=== PATIENT | male | born 1975 | race Caucasian/White ===

== ENCOUNTER 2018-04-15 23:01 | Emergency (ER) | payer OTHER ==
[~2018-04-15] VITALS: Ht 180.3 cm; Wt 145.4 kg
[2018-04-15 23:04] VITALS: BP 142/107
[2018-04-15] MEDS ORDERED: TETanus/Pertussis (Acell)/Diphther VAC/PF (Tdap-Adult) 0.5ml syringe IM ONE (23:25)
[2018-04-16] MEDS ORDERED: CEPH-572 PO (00:45)
[2018-04-16] MEDS ORDERED: HYDR-3965 PO (01:01)
== END 2018-04-16 01:19 | disposition home or self-care (01) ==
LOC: ER 23:01
DX: S91.311A Laceration without foreign body, right foot, initial encounter (principal); I10 Essential (primary) hypertension; W26.8XXA Contact with other sharp object(s), not elsewhere classified, initial encounter; Y93.01 Activity, walking, marching and hiking; Y92.090 Kitchen in other non-institutional residence as the place of occurrence of the external cause; Y99.8 Other external cause status
CPT/HCPCS: 12004; 73630; 90471; 90715; 99283

== ENCOUNTER 2018-08-25 19:31 | Emergency (ER) | payer SELFPAY ==
[~2018-08-25] VITALS: Ht 180.3 cm; Wt 122.3 kg
[2018-08-25 19:43] VITALS: BP 149/89
[2018-08-25] MEDS ORDERED: CEPH-572 PO (21:17)
[2018-08-25] MEDS ORDERED: cephalexin 500mg capsule PO ONE (21:20)
== END 2018-08-25 21:39 | disposition home or self-care (01) ==
LOC: ER 19:31
DX: S91.311A Laceration without foreign body, right foot, initial encounter (principal); I10 Essential (primary) hypertension; Z79.899 Other long term (current) drug therapy; W55.32XA Struck by other hoof stock, initial encounter; Y93.89 Activity, other specified; Y92.89 Other specified places as the place of occurrence of the external cause; Y99.8 Other external cause status
CPT/HCPCS: 12001; 12002; 73630; 99283

== ENCOUNTER 2020-01-08 07:36 | Inpatient (IN) | payer SELFPAY ==
[~2020-01-08] VITALS: Ht 180.3 cm; Wt 153.2 kg
[2020-01-08] VITALS (10 sets, daily range): BP systolic 137–166; BP diastolic 81–103
[2020-01-08 08:17] LABS: BASOPHILS # (AUTO) 0.1 X10'3 (0-0.2); BASOPHILS % (AUTO) 0.7 % (0-1); EOSINOPHILS # (AUTO) 0.3 X10'3 (0-0.9); EOSINOPHILS % (AUTO) 1.9 % (0-6); HEMATOCRIT 42.7 % (42.0-52.0); HEMOGLOBIN 14.3 g/dl (14.0-17.9); LYMPHOCYTES # (AUTO) 2.2 X10'3 (1.1-4.8); LYMPHOCYTES % (AUTO) 12.5 % (21-51); MEAN CORPUSCULAR HEMOGLOBIN 30.6 PG (27.0-31.0); MEAN CORPUSCULAR HGB CONC 33.5 g/dL (33.0-36.5); MEAN CORPUSCULAR VOLUME 91.4 FL (78-98); MEAN PLATELET VOLUME 8.5 FL (7.4-10.4); MONOCYTES # (AUTO) 1.2 X10'3 (0-0.9); MONOCYTES % (AUTO) 6.7 % (2-12); NEUTROPHILS # (AUTO) 13.6 X10'3 (1.8-7.7); NEUTROPHILS % (AUTO) 78.2 % (42-75); PLATELET COUNT 416 X10'3 (140-440); RED BLOOD COUNT 4.67 X10'6 (4.70-6.10); RED CELL DISTRIBUTION WIDTH 14.3 % (11.5-14.5); WHITE BLOOD COUNT 17.4 X10'3 (4.5-11.0)
[2020-01-08 08:19] LABS: CLARITY,URINE SLIGHTLY CLOUDY (Clear); GLUCOSE, URINE NEGATIVE (Neg); KETONES,URINE NEGATIVE (Neg); LEUKOCYTE ESTERASE ,URINE NEGATIVE (Neg); NITRITES, URINE NEGATIVE (Neg); OCCULT BLOOD,URINE LARGE (Neg); PH,URINE 5.5 (4.8-8.0); PROTEIN,URINE TRACE mg/dl (Neg)
[2020-01-08 08:21] LABS: COLOR,URINE DARK YELLOW (Yellow); UA COLLECTION TYPE VOIDED
[2020-01-08 08:31] LABS: ALANINE AMINOTRANSFERASE 69 U/L (12-78); ALBUMIN 3.3 G/DL (3.4-5.0); ALBUMIN/GLOBULIN RATIO 0.6 (1.1-1.5); ALKALINE PHOSPHATASE 79 IU/L (46-116); ANION GAP 8 (8-16); ASPARTATE AMINO TRANSFERASE 27 U/L (10-37); BILIRUBIN,TOTAL 0.5 MG/DL (0.1-1.0); BLOOD UREA NITROGEN 11 MG/DL (7-18); BUN/CREATININE RATIO 9.2 (5.4-32.0); CALCIUM 9.2 MG/DL (8.5-10.1); CHLORIDE 103 MMOL/L (99-107); GLUCOSE 107 MG/DL (70-104); LIPASE 89 U/L (73-393); POTASSIUM 3.7 MMOL/L (3.5-5.1); SODIUM 137 MMOL/L (135-145); TOTAL CARBON DIOXIDE 26.5 MMOL/L (24-32); TOTAL PROTEIN 8.5 G/DL (6.4-8.2); eGFR 66 ML/MIN
[2020-01-08 08:34] LABS: MUCUS STRANDS MANY /LPF (Neg); SQUAMOUS EPITHELIAL CELL,UR FEW /LPF (FEW)
[2020-01-08 08:35] LABS: CAL OXALATE CRYSTALS 2+ /HPF (NEGATIVE)
[2020-01-08] MEDS ORDERED: morphine 4 MG/ML inj SYRINge IV ONE (08:35)
[2020-01-08] MEDS ORDERED: pantoprazole 40 MG vial IV ONE (08:35)
[2020-01-08] MEDS ORDERED: normal saline 1000ML IV soln IVB ONE ×2 (08:35)
[2020-01-08 08:42] LABS: BACTERIA,URINE 1+ /HPF (Neg)
[2020-01-08 08:43] LABS: WBC,URINE 0-4 /HPF (0-4)
[2020-01-08] MEDS ORDERED: iohexol 300mg/ml 100ml inj. ONE (08:49)
[2020-01-08] MEDS ORDERED: piperacillin/tazo 3.375gm/50ml 50 ML IV ONE (10:25)
[2020-01-08] MEDS ORDERED: ESCI5TAB PO (10:45)
[2020-01-08] MEDS ORDERED: TRAZ-256 PO (10:45)
[2020-01-08] MEDS ORDERED: LOSA50TA64 PO (10:45)
[2020-01-08] MEDS ORDERED: magnesium 2GM in 50ml NS 50 ML IV PRN (11:40)
[2020-01-08] MEDS ORDERED: magnesium 4gm in 100ml NS 100 ML IV PRN (11:40)
[2020-01-08] MEDS ORDERED: HYDROcodone/acetaminophen 10/325mg tab PO PRN (11:40)
[2020-01-08] MEDS ORDERED: acetaminophen 325mg tablet PO PRN ×2 (11:40)
[2020-01-08] MEDS ORDERED: mag hydrox/Alum hydrox/simeth 30ml oral suspension PO PRN (11:40)
[2020-01-08] MEDS ORDERED: potassium Cl 20 mEq SR tablet PO PRN ×2 (11:40)
[2020-01-08] MEDS ORDERED: magnesium Cl slow-release 64mg tablet PO PRN (11:40)
[2020-01-08] MEDS ORDERED: ondansetron/PF 4mg/2ml inj IV PRN ×2 (11:40→18:05)
[2020-01-08] MEDS ORDERED: HYDROcodone/acetaminophen 5mg/325mg tablet PO PRN (11:40)
[2020-01-08] MEDS ORDERED: bisacodyl 10mg suppository rectal RC PRN (11:40)
[2020-01-08] MEDS ORDERED: HYDROmorphone inj. 0.5 MG/0.5 ML DISP.SYRIN IV PRN (11:40)
[2020-01-08] MEDS ORDERED: metoclopramide 5 mg/ml inj IV PRN (11:40)
[2020-01-08] MEDS ORDERED: magnesium hydroxide 30ml (MOM) UD suspension PO PRN (11:40)
[2020-01-08] MEDS ORDERED: potassium CL 10mEq/100ml bag 100 ML IV PRN ×2 (11:40)
[2020-01-08] MEDS: normal saline 1000ml 1,000 ML IV SCH ×2 (12:16→23:51)
--- NOTE | 2020-01-08 14:54 | NUR ---
Christian picked up from pharmacy and given to Sanjuana MARK.
--- NOTE | 2020-01-08 15:30 | NUR ---
pt going to OR first. Addendum: 01/08/20 at 1532 by RWILCOX report given to Ramsey in Recovery.
[2020-01-08 15:36] LABS: PARTIAL THROMBOPLASTIN TIME 32 SECONDS (22-32)
--- NOTE | 2020-01-08 15:40 | NUR ---
RECEIVED REPORT FROM DEEDEE PALACIOS. WAITING FOR PATIENT ARRIVAL TO ROOM 360A BUT WAS NOTIFIED THAT PATIENT WILL BE GOING TO OR FIRST.
[2020-01-08] MEDS: piperacillin/tazo 3.375gm/50ml 50 ML IV SCH ×2 (16:00→23:53)
[2020-01-08] MEDS ORDERED: BUPIVAcaine/PF 2.5 mg/ml (0.25%) 30ml vial ONE (16:04)
[2020-01-08] MEDS ORDERED: LIDOcaine 1% 30ml preserv. free vial ONE (16:04)
[2020-01-08] MEDS ORDERED: BUPIVACAINE liposomal/PF 13.3 MG/ML vial IM ONE (16:04)
[2020-01-08] MEDS ORDERED: BUPIVAcaine/PF 2.5mg/ml (0.25%) 10ml vial ONE (16:04)
[2020-01-08] MEDS ORDERED: midazolam 2 mg/2 ml injection ONE (16:27)
[2020-01-08] MEDS ORDERED: fentaNYL /PF 50mcg/ml 5ml ampule ONE ×2 (16:27→18:15)
[2020-01-08] MEDS ORDERED: rocuronium 10mg/ml inj IV ONE (16:29)
[2020-01-08] MEDS ORDERED: propofol inj 20 ML IV ONE ×2 (16:29→20:08)
[2020-01-08] MEDS ORDERED: LIDOcaine 2% (20mg/ml) 5ml vial ONE (16:30)
[2020-01-08] MEDS ORDERED: ceFOXitin 2GM-NS 50mL ADDVANT. 50 ML IV ONE (17:06)
[2020-01-08] MEDS ORDERED: ringers solution, lacted 1,000 ML IV SCH (18:01)
[2020-01-08] MEDS ORDERED: morphine 2 MG/ML inj. syringe IV PRN (18:05)
[2020-01-08] MEDS ORDERED: proCHLORperazine 10 MG/2 ml inj IV PRN (18:05)
[2020-01-08] MEDS ORDERED: morphine 4 MG/ML inj SYRINge IV PRN (18:05)
[2020-01-08] MEDS ORDERED: meperidine/PF 25mg/ml syringe IV PRN ×3 (18:05)
[2020-01-08] MEDS ORDERED: INDOCYANINE GREEN 25 MG/10 ML VIAL IV ONE (18:36)
[2020-01-08] MEDS: K and/or MAG REPLACEMENT MC SCH (20:00)
[2020-01-08] MEDS ORDERED: ceFOXitin 1000 MG inj ONE (20:08)
--- NOTE | 2020-01-08 20:44 | NUR ---
Received from OR via , accompanied by Anesthesiologist DR KELLEY and report given by Anesthesiolgist. PT WAKES TO VOICE, SKIN WARM AND PINK, MOVING EXT X 4, LS DIM, SCD'S ON, 4 BA'S ON THE ABD AND ONE 4X4 ISLAND DRESSING ALL CD, PIMENTEL TO GRAVITY WITH ANDRE URINE, KRISTIN DRAIN WITH SEROSANQ DRAINAGE, NO C/O PAIN, VSS, PIV RIGHT AC 20G LR 100ML/HR.
[2020-01-08] MEDS ORDERED: temazepam 15mg capsule PO PRN (21:00)
[2020-01-08] MEDS: losartan 50mg tablet PO SCH (21:00)
[2020-01-08] MEDS: traZODone 50mg tablet PO SCH (21:00)
[2020-01-08] MEDS: ESCITALOPRAM OXALATE 5 MG TABLET PO SCH (21:00)
[2020-01-08] MEDS ORDERED: naloxone 0.4 mg/ml inj IV PRN ×2 (21:10→22:30)
[2020-01-08] MEDS ORDERED: CADD PCA waste documentation MC PRN ×2 (21:10→22:30)
[2020-01-08] MEDS ORDERED: HYDROmorphone/NS 1 mg/ml CADD 50 ML IV SCH ×2 (21:10→23:00)
--- NOTE | 2020-01-08 21:19 | NUR ---
Report called to receiving nurse. Transferred via [facility] . Special Issues communicated to receiving nurse MARGOT MARK. PT IS SLEEPY BUT WAKES EASILY, NO C/O PAIN, SKIN WARM AND PINK, DRESSING CD, PIMENTEL DRAINED AND TO GRAVITY, PIV PATENT, LS DIM, BS ABSENT, SCD'S ON PT, PT WAS SATING 90% TO 92% ON NC SO PT WAS CHANGED BACK TO MASK AND NOW SATING 95%, PT MEETS DISCHARGE CRITERIA.
--- NOTE | 2020-01-08 21:20 | NUR ---
Received report from recovery nurse Jannette MARK. Patient to follow shortly.
--- NOTE | 2020-01-08 21:30 | NUR ---
Patient arrived to floor from recovery. Settled into room and post-op vital signs initiated. Patient very drowsy at this time.
[2020-01-08] MEDS: HYDROmorphone/NS 1 mg/ml CADD 50 ML IV SCH ×2 (22:40→23:00)
--- NOTE | 2020-01-08 22:44 | NUR ---
Unable to scan dilaudid CADD pump. Contacted pharmacy, stated he will DC order and re-order to see if it corrected issues. Still unable to scan or administer manually. Pharmacy came up to floor to attempt to troubleshoot reason medication could not be administered via PC. Stated this is sometimes a glitch that can occur and we must contact surgeon to get a new order for another medication. Relief charge then cancelled order and reentered. Still unable to scan medication; however, the PC accepted a manual administration.
[2020-01-09] VITALS (7 sets, daily range): BP systolic 125–151; BP diastolic 77–100
--- NOTE | 2020-01-09 00:32 | NUR ---
Post op - slowly titrating oxygen down. Addendum: 01/09/20 at 0033 by Kaylah Cruz RN Amended: Links added.
[2020-01-09] MEDS: HYDROmorphone/NS 1 mg/ml CADD 50 ML IV SCH ×12 (01:00→23:00)
[2020-01-09 05:07] LABS: BASOPHILS % (AUTO) 0.3 % (0-1); EOSINOPHILS % (AUTO) 0 % (0-6); HEMATOCRIT 39.5 % (42.0-52.0); LYMPHOCYTES % (AUTO) 7.1 % (21-51); MEAN CORPUSCULAR HEMOGLOBIN 30.4 PG (27.0-31.0); MEAN CORPUSCULAR HGB CONC 32.9 g/dL (33.0-36.5); MEAN CORPUSCULAR VOLUME 92.4 FL (78-98); MEAN PLATELET VOLUME 8.9 FL (7.4-10.4); MONOCYTES # (AUTO) 0.5 X10'3 (0-0.9); MONOCYTES % (AUTO) 3.5 % (2-12); NEUTROPHILS # (AUTO) 13.1 X10'3 (1.8-7.7); NEUTROPHILS % (AUTO) 89.1 % (42-75); PLATELET COUNT 393 X10'3 (140-440); RED BLOOD COUNT 4.28 X10'6 (4.70-6.10); RED CELL DISTRIBUTION WIDTH 14.3 % (11.5-14.5); WHITE BLOOD COUNT 14.7 X10'3 (4.5-11.0)
[2020-01-09 05:16] LABS: PARTIAL THROMBOPLASTIN TIME 32 SECONDS (22-32)
[2020-01-09 05:24] LABS: ALANINE AMINOTRANSFERASE 47 U/L (12-78); ALBUMIN 2.7 G/DL (3.4-5.0); ALBUMIN/GLOBULIN RATIO 0.6 (1.1-1.5); ALKALINE PHOSPHATASE 69 IU/L (46-116); ANION GAP 9 (8-16); ASPARTATE AMINO TRANSFERASE 16 U/L (10-37); BILIRUBIN,TOTAL 0.5 MG/DL (0.1-1.0); BLOOD UREA NITROGEN 9 MG/DL (7-18); BUN/CREATININE RATIO 8.8 (5.4-32.0); CALCIUM 8.7 MG/DL (8.5-10.1); CHLORIDE 105 MMOL/L (99-107); CREATININE 1.02 MG/DL (0.60-1.10); GLUCOSE 143 MG/DL (70-104); PHOSPHORUS 4.4 MG/DL (2.3-4.5); POTASSIUM 4.2 MMOL/L (3.5-5.1); SODIUM 138 MMOL/L (135-145); TOTAL PROTEIN 7.5 G/DL (6.4-8.2); eGFR 80 ML/MIN
--- NOTE | 2020-01-09 06:40 | NUR ---
Problems reprioritized. Patient report given, questions answered & plan of care reviewed with Spenser MARK.
--- NOTE | 2020-01-09 06:50 | NUR ---
Patient in room [facility]. I have received report from Kaylah MARK and had the opportunity to ask questions and assume patient care.
[2020-01-09] MEDS: piperacillin/tazo 3.375gm/50ml 50 ML IV SCH ×2 (07:36→15:57)
[2020-01-09] MEDS: heparin, porcine 5000 units/ml vial SQ SCH ×2 (07:36→20:20)
[2020-01-09] MEDS: K and/or MAG REPLACEMENT MC SCH ×2 (08:00→20:00)
[2020-01-09] MEDS ORDERED: BUPR-94 PO (09:04)
[2020-01-09] MEDS ORDERED: PANT-47 PO (09:07)
[2020-01-09] MEDS ORDERED: CIPR-230 PO ×2 (09:08→09:10)
[2020-01-09] MEDS ORDERED: METR-159 PO (09:11)
--- NOTE | 2020-01-09 09:15 | NUR ---
PAGER ID: [phone] MESSAGE: Surgical Flr Spenser MARK ext [phone]. RE: Chris Horn. I spoke to the today, she gave me updated home meds. I updated the med recon. She is concern about Wellbutrin not being given. Can we resume the Wellbutrin home med?
[2020-01-09] MEDS: buPROPion SR 150mg tablet PO SCH (09:29)
[2020-01-09] MEDS: normal saline 1000ml 1,000 ML IV SCH ×2 (09:30→20:15)
--- NOTE | 2020-01-09 16:21 | NUR ---
DC 01/08 @16:15. Patient tolerated procedure well.
--- NOTE | 2020-01-09 18:37 | NUR ---
Problems reprioritized. Patient report given, questions answered & plan of care reviewed with Sydnie MARK.
--- NOTE | 2020-01-09 18:38 | NUR ---
Problems reprioritized. Patient report given, questions answered & plan of care reviewed with Sydnie MARK. .
--- NOTE | 2020-01-09 18:40 | NUR ---
Patient in room [facility]. I have received report from DUNIA MARK and had the opportunity to ask questions and assume patient care.
[2020-01-09] MEDS: ESCITALOPRAM OXALATE 5 MG TABLET PO SCH (20:18)
[2020-01-09] MEDS: traZODone 50mg tablet PO SCH (20:18)
[2020-01-09] MEDS: losartan 50mg tablet PO SCH (20:19)
[2020-01-10] VITALS: BP 120/70
[2020-01-10] MEDS: piperacillin/tazo 3.375gm/50ml 50 ML IV SCH ×3 (00:33→17:13)
[2020-01-10] MEDS: HYDROmorphone/NS 1 mg/ml CADD 50 ML IV SCH ×12 (01:00→23:00)
[2020-01-10] MEDS: normal saline 1000ml 1,000 ML IV SCH ×2 (04:11→12:42)
[2020-01-10 04:35] LABS: BASOPHILS # (AUTO) 0.1 X10'3 (0-0.2); BASOPHILS % (AUTO) 0.5 % (0-1); EOSINOPHILS % (AUTO) 0.3 % (0-6); HEMATOCRIT 38.1 % (42.0-52.0); HEMOGLOBIN 12.2 g/dl (14.0-17.9); LYMPHOCYTES # (AUTO) 2.1 X10'3 (1.1-4.8); LYMPHOCYTES % (AUTO) 15.1 % (21-51); MEAN CORPUSCULAR HEMOGLOBIN 29.6 PG (27.0-31.0); MEAN CORPUSCULAR HGB CONC 32.1 g/dL (33.0-36.5); MEAN CORPUSCULAR VOLUME 92.1 FL (78-98); MEAN PLATELET VOLUME 8.6 FL (7.4-10.4); MONOCYTES # (AUTO) 1.2 X10'3 (0-0.9); NEUTROPHILS # (AUTO) 10.3 X10'3 (1.8-7.7); NEUTROPHILS % (AUTO) 75.1 % (42-75); PLATELET COUNT 423 X10'3 (140-440); RED BLOOD COUNT 4.14 X10'6 (4.70-6.10); RED CELL DISTRIBUTION WIDTH 14.4 % (11.5-14.5); WHITE BLOOD COUNT 13.8 X10'3 (4.5-11.0)
[2020-01-10 04:45] LABS: PARTIAL THROMBOPLASTIN TIME 30 SECONDS (22-32)
[2020-01-10 04:48] LABS: ALANINE AMINOTRANSFERASE 33 U/L (12-78); ALBUMIN 2.5 G/DL (3.4-5.0); ALBUMIN/GLOBULIN RATIO 0.6 (1.1-1.5); ALKALINE PHOSPHATASE 57 IU/L (46-116); ANION GAP 3 (8-16); ASPARTATE AMINO TRANSFERASE 13 U/L (10-37); BILIRUBIN,TOTAL 0.3 MG/DL (0.1-1.0); BLOOD UREA NITROGEN 8 MG/DL (7-18); BUN/CREATININE RATIO 7.8 (5.4-32.0); CALCIUM 8.4 MG/DL (8.5-10.1); CHLORIDE 104 MMOL/L (99-107); CREATININE 1.02 MG/DL (0.60-1.10); GLUCOSE 109 MG/DL (70-104); MAGNESIUM 2.1 MG/DL (1.5-2.4); PHOSPHORUS 3.5 MG/DL (2.3-4.5); POTASSIUM 3.9 MMOL/L (3.5-5.1); SODIUM 138 MMOL/L (135-145); TOTAL CARBON DIOXIDE 30.8 MMOL/L (24-32); TOTAL PROTEIN 6.9 G/DL (6.4-8.2); eGFR 80 ML/MIN
--- NOTE | 2020-01-10 06:28 | NUR ---
Problems reprioritized. Patient report given, questions answered & plan of care reviewed with DUNIA MARK.
--- NOTE | 2020-01-10 06:32 | NUR ---
Patient in room [facility]. I have received report from Sydnie MARK and had the opportunity to ask questions and assume patient care.
[2020-01-10 07:00] VITALS: BP 143/53
[2020-01-10] MEDS: buPROPion SR 150mg tablet PO SCH (07:32)
[2020-01-10] MEDS: heparin, porcine 5000 units/ml vial SQ SCH ×2 (07:34→21:12)
[2020-01-10] MEDS: K and/or MAG REPLACEMENT MC SCH ×2 (08:00→20:00)
[2020-01-10 11:00] VITALS: BP 139/81
[2020-01-10] MEDS: pantoprazole 40mg Tablet.DR PO SCH (12:17)
[2020-01-10 14:54] VITALS: BP 149/86
--- NOTE | 2020-01-10 17:54 | NUR ---
Dr. Van seen patient today. I mentioned to him that KRISTIN draining a lot today but it was serous.
[2020-01-10 18:00] VITALS: BP 141/85
--- NOTE | 2020-01-10 18:26 | NUR ---
Problems reprioritized. Patient report given, questions answered & plan of care reviewed with Cory MARK.
--- NOTE | 2020-01-10 18:47 | NUR ---
Patient in room [facility]. I have received report from DEEDEE Dueñas and had the opportunity to ask questions and assume patient care.
[2020-01-10] MEDS: traZODone 50mg tablet PO SCH (21:18)
[2020-01-10] MEDS: ESCITALOPRAM OXALATE 5 MG TABLET PO SCH (21:18)
[2020-01-10] MEDS: lactobacillus rhamnosus 10,000 MMU CELLS/CAPSULE PO SCH (21:18)
[2020-01-10] MEDS: losartan 50mg tablet PO SCH (21:19)
[2020-01-11] VITALS: BP_SYST 141; BP_SYST 152; BP_DIAS 70; BP_DIAS 83
[2020-01-11] MEDS: piperacillin/tazo 3.375gm/50ml 50 ML IV SCH ×3 (00:31→16:36)
[2020-01-11] MEDS: HYDROmorphone/NS 1 mg/ml CADD 50 ML IV SCH ×8 (01:00→15:00)
[2020-01-11] MEDS: normal saline 1000ml 1,000 ML IV SCH (03:42)
[2020-01-11 05:10] LABS: BASOPHILS # (AUTO) 0.1 X10'3 (0-0.2); BASOPHILS % (AUTO) 0.5 % (0-1); EOSINOPHILS # (AUTO) 0.4 X10'3 (0-0.9); EOSINOPHILS % (AUTO) 2.8 % (0-6); HEMATOCRIT 37.5 % (42.0-52.0); HEMOGLOBIN 12.5 g/dl (14.0-17.9); LYMPHOCYTES # (AUTO) 2.7 X10'3 (1.1-4.8); MEAN CORPUSCULAR HEMOGLOBIN 30.2 PG (27.0-31.0); MEAN CORPUSCULAR HGB CONC 33.3 g/dL (33.0-36.5); MEAN CORPUSCULAR VOLUME 90.7 FL (78-98); MEAN PLATELET VOLUME 8.9 FL (7.4-10.4); MONOCYTES # (AUTO) 1.4 X10'3 (0-0.9); MONOCYTES % (AUTO) 10.2 % (2-12); NEUTROPHILS # (AUTO) 9.1 X10'3 (1.8-7.7); NEUTROPHILS % (AUTO) 66.5 % (42-75); PLATELET COUNT 426 X10'3 (140-440); RED BLOOD COUNT 4.13 X10'6 (4.70-6.10); RED CELL DISTRIBUTION WIDTH 14.1 % (11.5-14.5); WHITE BLOOD COUNT 13.7 X10'3 (4.5-11.0)
[2020-01-11 05:15] LABS: PARTIAL THROMBOPLASTIN TIME 29 SECONDS (22-32)
[2020-01-11 05:27] LABS: ALANINE AMINOTRANSFERASE 32 U/L (12-78); ALBUMIN 2.4 G/DL (3.4-5.0); ALBUMIN/GLOBULIN RATIO 0.6 (1.1-1.5); ALKALINE PHOSPHATASE 55 IU/L (46-116); ANION GAP 6 (8-16); ASPARTATE AMINO TRANSFERASE 17 U/L (10-37); BILIRUBIN,TOTAL 0.4 MG/DL (0.1-1.0); BLOOD UREA NITROGEN 8 MG/DL (7-18); BUN/CREATININE RATIO 8.2 (5.4-32.0); CALCIUM 8.2 MG/DL (8.5-10.1); CHLORIDE 104 MMOL/L (99-107); CREATININE 0.97 MG/DL (0.60-1.10); GLUCOSE 92 MG/DL (70-104); MAGNESIUM 1.9 MG/DL (1.5-2.4); PHOSPHORUS 3.2 MG/DL (2.3-4.5); POTASSIUM 3.6 MMOL/L (3.5-5.1); SODIUM 137 MMOL/L (135-145); TOTAL CARBON DIOXIDE 27.2 MMOL/L (24-32); TOTAL PROTEIN 6.5 G/DL (6.4-8.2); eGFR 84 ML/MIN
--- NOTE | 2020-01-11 05:43 | NUR ---
I agree with Moniac Vann [facility] PRE[facility] student documentation, and assessment.
--- NOTE | 2020-01-11 06:30 | NUR ---
Patient in room [facility]. I have received report from Cory MARK/Edwar CASE and had the opportunity to ask questions and assume patient care.
--- NOTE | 2020-01-11 06:30 | NUR ---
Problems reprioritized. Patient report given, questions answered & plan of care reviewed with DEEDEE Hobson.
--- NOTE | 2020-01-11 06:33 | NUR ---
Report given with PREM Vann to DEEDEE Hobson.
[2020-01-11 07:17] LABS: PLATELET ESTIMATE NORMAL; TOTAL CELLS COUNTED 100
[2020-01-11] MEDS: pantoprazole 40mg Tablet.DR PO SCH (07:42)
[2020-01-11] MEDS: lactobacillus rhamnosus 10,000 MMU CELLS/CAPSULE PO SCH ×2 (07:43→21:06)
[2020-01-11] MEDS: buPROPion SR 150mg tablet PO SCH (07:43)
[2020-01-11] MEDS: heparin, porcine 5000 units/ml vial SQ SCH ×2 (07:47→20:55)
[2020-01-11 07:57] VITALS: BP 133/75
[2020-01-11] MEDS: K and/or MAG REPLACEMENT MC SCH ×2 (08:00→20:00)
[2020-01-11] MEDS ORDERED: oxyCODONE/APAP 5-325mg tablet PO PRN (08:55)
[2020-01-11] MEDS ORDERED: oxyCODONE/APAP 10/325mg tablet PO PRN (08:55)
[2020-01-11] MEDS: acetaminophen 325mg tablet PO SCH ×3 (11:22→21:07)
[2020-01-11 11:30] VITALS: BP 151/92
[2020-01-11] MEDS: ketorolac tromethamine 15mg/ml inj. IV SCH ×2 (15:42→20:59)
[2020-01-11 18:00] VITALS: BP 160/86
--- NOTE | 2020-01-11 18:00 | NUR ---
Patient in room [facility]. I have received report from DEEDEE Hobson and had the opportunity to ask questions and assume patient care.
--- NOTE | 2020-01-11 18:24 | NUR ---
Problems reprioritized. Patient report given, questions answered & plan of care reviewed with NIKKO MARK/CHANTAL CASE.
--- NOTE | 2020-01-11 19:18 | NUR ---
Patient in room [facility]. I have received report from DEEDEE Hobson and had the opportunity to ask questions and assume patient care.
[2020-01-11] MEDS: traZODone 50mg tablet PO SCH (21:08)
[2020-01-11] MEDS: ESCITALOPRAM OXALATE 5 MG TABLET PO SCH (21:08)
[2020-01-11] MEDS: losartan 50mg tablet PO SCH (21:09)
[2020-01-12 00:11] VITALS: BP 141/83
[2020-01-12] MEDS: normal saline 1000ml 1,000 ML IV SCH (00:13)
[2020-01-12] MEDS: piperacillin/tazo 3.375gm/50ml 50 ML IV SCH ×2 (00:17→08:01)
[2020-01-12] MEDS: acetaminophen 325mg tablet PO SCH ×2 (02:00→08:02)
[2020-01-12] MEDS: ketorolac tromethamine 15mg/ml inj. IV SCH ×2 (02:00→08:02)
[2020-01-12 06:15] LABS: BASOPHILS # (AUTO) 0.1 X10'3 (0-0.2); BASOPHILS % (AUTO) 0.7 % (0-1); EOSINOPHILS # (AUTO) 0.8 X10'3 (0-0.9); EOSINOPHILS % (AUTO) 5.2 % (0-6); HEMATOCRIT 37.5 % (42.0-52.0); HEMOGLOBIN 12.5 g/dl (14.0-17.9); LYMPHOCYTES # (AUTO) 2.6 X10'3 (1.1-4.8); LYMPHOCYTES % (AUTO) 17.5 % (21-51); MEAN CORPUSCULAR HEMOGLOBIN 30.7 PG (27.0-31.0); MEAN CORPUSCULAR HGB CONC 33.4 g/dL (33.0-36.5); MEAN CORPUSCULAR VOLUME 92.2 FL (78-98); MEAN PLATELET VOLUME 8.8 FL (7.4-10.4); MONOCYTES # (AUTO) 1.3 X10'3 (0-0.9); MONOCYTES % (AUTO) 8.9 % (2-12); NEUTROPHILS # (AUTO) 9.9 X10'3 (1.8-7.7); NEUTROPHILS % (AUTO) 67.7 % (42-75); PLATELET COUNT 422 X10'3 (140-440); RED BLOOD COUNT 4.07 X10'6 (4.70-6.10); RED CELL DISTRIBUTION WIDTH 14.2 % (11.5-14.5); WHITE BLOOD COUNT 14.6 X10'3 (4.5-11.0)
--- NOTE | 2020-01-12 06:15 | NUR ---
Patient in room [facility]. I have received report from DEEDEE Ray & Edwar, Student nurse and had the opportunity to ask questions and assume patient care.
[2020-01-12 06:30] VITALS: BP 146/86
--- NOTE | 2020-01-12 06:49 | NUR ---
Report given with PREM Vann student to DEEDEE Richard. I also have assessed all his documentation, and assessments and am in agreeance with them.
--- NOTE | 2020-01-12 07:00 | NUR ---
Problems reprioritized. Patient report given, questions answered & plan of care reviewed with DEEDEE Richard.
[2020-01-12 07:31] LABS: ALANINE AMINOTRANSFERASE 46 U/L (12-78); ALBUMIN 2.3 G/DL (3.4-5.0); ALBUMIN/GLOBULIN RATIO 0.6 (1.1-1.5); ALKALINE PHOSPHATASE 58 IU/L (46-116); ANION GAP 10 (8-16); ASPARTATE AMINO TRANSFERASE 30 U/L (10-37); BILIRUBIN,TOTAL 0.4 MG/DL (0.1-1.0); BLOOD UREA NITROGEN 8 MG/DL (7-18); BUN/CREATININE RATIO 8.4 (5.4-32.0); CALCIUM 8.4 MG/DL (8.5-10.1); CHLORIDE 105 MMOL/L (99-107); CREATININE 0.95 MG/DL (0.60-1.10); GLUCOSE 83 MG/DL (70-104); MAGNESIUM 1.9 MG/DL (1.5-2.4); PHOSPHORUS 4.4 MG/DL (2.3-4.5); POTASSIUM 3.7 MMOL/L (3.5-5.1); SODIUM 141 MMOL/L (135-145); TOTAL CARBON DIOXIDE 26.2 MMOL/L (24-32); TOTAL PROTEIN 6.4 G/DL (6.4-8.2); eGFR 87 ML/MIN
[2020-01-12] MEDS: K and/or MAG REPLACEMENT MC SCH (08:00)
[2020-01-12] MEDS: heparin, porcine 5000 units/ml vial SQ SCH (08:00)
[2020-01-12] MEDS: buPROPion SR 150mg tablet PO SCH (08:01)
[2020-01-12] MEDS: lactobacillus rhamnosus 10,000 MMU CELLS/CAPSULE PO SCH (08:01)
[2020-01-12] MEDS: pantoprazole 40mg Tablet.DR PO SCH (08:01)
[2020-01-12 08:20] LABS: PLATELET ESTIMATE NORMAL; TOTAL CELLS COUNTED 100
[2020-01-12] MEDS ORDERED: AMOX-117 PO (09:37)
[2020-01-12] MEDS ORDERED: PER5325T PO (09:42)
--- NOTE | 2020-01-12 11:40 | NUR ---
Pt provided DC inst. IV DC'd, tip intact. All belongings sent w/pt. WC to front lobby.
[2020-01-12] MEDS ORDERED: amox tr/potassium clavulanate 875/125mg TAB PO SCH (17:30)
== END 2020-01-12 11:40 | disposition home or self-care (01) | DRG 329 ==
LOC: ER 07:36 → ED HOLD 11:36 → PACU 20:29 → SUR 3N 21:30
PROVIDERS: ADMIT Family Medicine; ATTEND Family Medicine
PROC: 8E0W4CZ Robotic Assisted Procedure of Trunk Region, Percutaneous Endoscopic Approach (ICD-10-PCS; 2020-01-08)
PROC: 0DTN4ZZ Resection of Sigmoid Colon, Percutaneous Endoscopic Approach (ICD-10-PCS; principal; 2020-01-08 16:22)
DX: K57.12 Diverticulitis of small intestine without perforation or abscess without bleeding (principal); K65.1 Peritoneal abscess; F41.8 Other specified anxiety disorders; I10 Essential (primary) hypertension; Z79.899 Other long term (current) drug therapy
CPT/HCPCS: 99285; Z7506; Z7508; 36415; 71045; 74177; 80053; 81001; 83690; 83735; 84100; 85007; 85025; 85610; 85730; 87081; 93005; A4215; A4618; C1758; C9113; C9290; G0378; J0694; J1170; J1644; J1885; J2001; J2175; J2250; J2270; J2543; J2704; J3010; J3490; J7030; J7120; Q9967

== ENCOUNTER 2021-03-27 08:59 | Emergency (ER) | payer BC, SELFPAY ==
[~2021-03-27] VITALS: Ht 180.3 cm; Wt 156.8 kg
[~2021-03-27 08:59] MED LIST: BUPR-94 PO; ESCI5TAB PO; LOSA50TA64 PO; PANT-47 PO; PER5325T PO; TRAZ-256 PO
[2021-03-27 09:08] VITALS: BP 155/98
[2021-03-27] MEDS ORDERED: albuterol 2.5 MG/3 ML nebule NEB ONE (09:15)
[2021-03-27] MEDS ORDERED: dexamethasone 4mg tablet PO ONE (09:15)
== END 2021-03-27 10:37 | disposition home or self-care (01) ==
LOC: ER 09:00
DX: J98.8 Other specified respiratory disorders (principal); Z20.822 Contact with and (suspected) exposure to COVID-19; R06.02 Shortness of breath; R05.9 Cough, unspecified; R06.2 Wheezing; I10 Essential (primary) hypertension; F32.9 Major depressive disorder, single episode, unspecified; Z72.89 Other problems related to lifestyle; Z79.899 Other long term (current) drug therapy
CPT/HCPCS: 71045; 87635; 94640; 99284; C9803; 94760; 99283